=== PATIENT | female | born 1975 | race Caucasian/White ===

== ENCOUNTER 2024-07-24 22:29 | Emergency (ER) | payer BC ==
[2024-07-24] MEDS ORDERED: NA CHLORIDE 0.9% 1,000 ML ONE (23:30)
[2024-07-24] MEDS ORDERED: LORazepam 2 MG/ML VIAL ONE (23:30)
[2024-07-24] MEDS ORDERED: MORPHINE 2 MG/ML SYR ONE (23:30)
[2024-07-24] MEDS ORDERED: KETOROLAC 30 MG/ML INJ ONE (23:30)
[2024-07-24 23:37] LABS: Absolute Lymphocytes (CBC) 1.1 K/uL (0.7-4.9); Absolute Monocytes 0.9 K/uL (0.1-1.3); Absolute Neutrophil 7.1 K/uL (1.8-8.0); Basophils % 0.2 % (0-1.3); Eosinophils % 0.1 % (0-4.4); Hematocrit 41.3 % (36.0-45.0); Lymphocytes % 12.1 % (15.3-44.8); MCH 32.6 pg (27.0-35.0); MCV 95.8 fL (80-100); MPV 7.2 fL (7.6-11.3); Monocytes % 9.9 % (3.3-12.3); Neutrophils % 77.7 % (41.7-73.7); Nucleated Red Blood Cells % 0.1 % (0-0); Platelets 318 thou/uL (152-406); RBC Red Blood Cell Count 4.31 M/uL (3.86-4.86); Red Cell Distribution Width 14.1 % (12.1-15.2)
[2024-07-25 00:04] LABS: Albumin 3.8 g/dL (3.4-5.0); Albumin/Globulin Ratio 0.9 (1.1-1.8); Anion Gap 15.1 mEq/L (5.0-15.0); Bilirubin Direct 0.3 mg/dL (0-0.2); Bilirubin Indirect, Calculated 0.6 mg/dL (0.2-0.8); Bilirubin Total 0.9 mg/dL (0.2-1.0); Globulin 4.2 g/dL (2.3-3.5); Potassium 3.1 mEq/L (3.5-5.1)
[2024-07-25 00:11] LABS: Thyroid Stimulating Hormone 6.07 uIU/mL (0.358-3.740)
[2024-07-25] MEDS ORDERED: THIAMINE 200 MG/2 ML INJ ONE (01:44)
[2024-07-25] MEDS ORDERED: CALCIUM GLUCONATE 1 GM IVPB 2 GM/100 ML BAG IV ONE (01:44)
--- NOTE | 2024-07-25 03:26 | EDPHYS ---
Physician Documentation [facility] [place] Name: Albert Montanez Age: 48 yrs Sex: Female : 1975 Arrival Date: 07/24/2024 Time: 22:29 Bed 18 Private MD: ED Physician Jovi Craig HPI: 07/24 22:45 This 48 yrs old Black Female presents to ER via Unassigned with complaints of Can't sp4 open hands. 07/25 20:37 48-year-old female presents with acute paresthesias and bilateral hand contractures sp4 after developing anxiety after alcohol consumption. Patient states she consumed significant alcohol yesterday because she was feeling unwell and upset about her cat. . Historical: - Allergies: 02:45 No Known Allergies; jb4 - PMHx: 02:45 Hypothyroidism; jb4 - PSHx: 02:45 tubal ligation; jb4 - Family history:: not pertinent. ROS: 20:37 Constitutional: Negative for fever, chills, and weight loss, positive paresthesias, sp4 positive bilateral hand tetany 20:37 All other systems are negative, Exam: 20:37 Constitutional: This is a well developed, well nourished patient who is awake, alert, sp4 very anxious Head/Face: Normocephalic, atraumatic. Eyes: Pupils equal round and reactive to light, extra-ocular motions intact. Lids and lashes normal. Conjunctiva and sclera are not injected. Cornea within normal limits. Periorbital areas with no swelling, redness, or edema. ENT: Nares patent. No nasal discharge, no septal abnormalities noted. Tympanic membranes are normal and external auditory canals are clear. Oropharynx with no redness, swelling, or masses, exudates, or evidence of obstruction, uvula midline. Mucous membranes moist. Neck: Trachea midline, no thyromegaly or masses palpated, and no cervical lymphadenopathy. Supple, full range of motion without nuchal rigidity, or vertebral point tenderness. Chest/axilla: Normal chest wall appearance and motion. Nontender with no deformity. No lesions are appreciated. Cardiovascular: Regular rate and rhythm with a normal S1 and S2. No gallops, murmurs, or rubs. Normal PMI, no JVD. No pulse deficits. Respiratory: Lungs have equal breath sounds bilaterally, clear to auscultation and percussion. No rales, rhonchi or wheezes noted. No increased work of breathing, no retractions or nasal flaring. Abdomen/GI: Soft, with normal bowel sounds. No distension or tympany. No guarding or rebound. No evidence of tenderness throughout. Back: No spinal tenderness. No costovertebral tenderness. Skin: Warm, dry with normal turgor. Normal color with no rashes, no lesions, and no evidence of cellulitis. MS/ Extremity: Pulses equal, no cyanosis. Neurovascular intact. Bilateral wrist and hand contractures consistent with acute tetany secondary to hyperventilation Neuro: Awake and alert, GCS 15, oriented to person, place, time, and situation. Cranial nerves II-XII grossly intact. Motor strength 5/5 in all extremities. Sensory grossly intact. Psych: Awake, alert, with orientation to person, place and time. Moderate to severe anxiety Vital Signs: 00:06 BP 173 / 123; Pulse 85; Resp 16; Pulse Ox 99% on R/A; jb4 02:11 BP 150 / 94; Pulse 87; Resp 15; Pulse Ox 100% on R/A; jb4 NIH Stroke Scale Scores: 20:37 NIHSS Score: 0 sp4 Keller Coma Score: 20:37 Eye Response: spontaneous(4). Motor Response: obeys commands(6). Verbal Response: sp4 oriented(5). Total: 15. MDM: 07/24 22:52 Medical Screening Exam initiated sp4 07/25 20:54 Differential Diagnosis altered mental status, sepsis, flu, Anxiety attack . Data sp4 reviewed: vital signs, nurses notes, lab test result(s), CBC, electrolytes, hepatic panel. Consideration of Admission/Observation Escalation of care including admission/observation considered. 20:55 ED course: Symptoms have completely resolved after medications. Patient stable for sp4 discharge home.. 07/24 22:56 Order name: Basic Metabolic Panel; Complete Time: sp4 07/24 22:56 Order name: CBC with Diff; Complete Time: sp4 07/24 22:56 Order name: LFT's; Complete Time: sp4 07/24 22:57 Order name: TSH; Complete Time: sp4 07/24 22:57 Order name: T4 Free; Complete Time: sp4 07/24 22:56 Order name: Saline Lock; Complete Time: 00:06 sp4 07/24 22:56 Order name: Cardiac monitoring; Complete Time: 23:51 sp4 07/24 22:56 Order name: IV Saline Lock; Complete Time: 23:36 sp4 07/24 22:56 Order name: Labs collected and sent; Complete Time: 23:36 sp4 Administered Medications: 07/24 23:36 Drug: Ativan IVP 2 mg IVP once Route: IVP; Site: right antecubital; [facility] 07/25 00:00 Follow up: Response: No adverse reaction; Marked relief of symptoms [facility] 07/24 23:36 Drug: morphine IVP or IV 2 mg IVP once over 4 mins Route: IVP; Infused Over: 4 mins; [facility] Site: right antecubital; 07/25 00:00 Follow up: Response: No adverse reaction; Marked relief of symptoms [facility] 07/24 23:36 Drug: Ketorolac IVP 15 mg IVP once Route: IVP; Site: right antecubital; [facility] 07/25 00:00 Follow up: Response: No adverse reaction; Marked relief of symptoms [facility] 07/24 23:36 Drug: NS 0.9% IV 1000 ml IV at 1 bolus Per protocol; to be given as a bolus over 60 jb4 minutes Route: IV; Rate: 1 bolus; Site: right antecubital; 07/25 00:36 Follow up: Response: No adverse reaction; IV Status: Completed infusion; IV Intake: jb4 1000ml 02:10 Drug: Calcium Gluconate IVPB 2 grams IVPB once over 60 mins; (mix in NS 100 mL) Route: jb4 IVPB; Infused Over: 60 mins; Site: right antecubital; 03:10 Follow up: Response: No adverse reaction; IV Status: Completed infusion; IV Intake: jb4 100ml 02:10 Drug: Thiamine IV 100 mg IV at bolus once Route: IV; Rate: bolus; Site: right [facility] antecubital; 02:11 Follow up: Response: No adverse reaction; IV Status: Completed infusion jb4 Disposition Summary: 07/25/24 03:25 Discharge Ordered Notes: Location: Home sp4 Problem: new sp4 Symptoms: have improved sp4 Condition: Stable sp4 Diagnosis - acute Panick attack , acute alcoholic hepatitis, acute hyperventilation, acute sp4 hypocalcemia, hypothyroidism Followup: sp4 - With: Private Physician - When: 7 - 10 days - Reason: Recheck today's complaints Discharge Instructions: - Discharge Summary Sheet sp4 - Alcoholic Hepatitis sp4 Forms: - Patient Portal Instructions sp4 NIH Stroke Scale - NIH Stroke Score Date: 07/25/2024 Time: 20:37 Total Score = 0 10. Dysarthria (speech clarity - read or repeat words) - 0(Normal) 11. Extinction and Inattention (visual/tactile/auditory/spatial/personal) - 0(No abnormality) 1a. Level of Consciousness (LOC) - 0(Alert) 1b. Level of Consciousness (LOC) (Month \T\ Age) - 0(Both) 1c. LOC Commands (Open \T\ Closes Eyes/Strawhat Inspector And Packer) - 0(Both) 2. Best Gaze (Lateral Gaze Paresis) - 0(Normal) 3. Visual Field Loss - 0(No visual loss) 4. Facial Palsy - 0(Normal) 5a. Left Arm: Motor (10-second hold) - 0(No drift) 5b. Right Arm: Motor (10-second hold) - 0(No drift) 6a. Left Leg: Motor (5-second hold - always test supine) - 0(No drift) 6b. Right Leg: Motor (5-second hold - always test supine) - 0(No drift) 7. Limb Ataxia (finger/nose \T\ heel/ridley - test with eyes open) - 0(Absent) 8. Sensory Loss (pinprick arms/legs/face) - 0(Normal) 9. Best Language: Aphasia (description/naming/reading) - 0(No aphasia) Initials: sp4 Signatures: Dispatcher [employer] Dwight Holland, NADEEM RN jb4 Jovi Craig MD MD sp4
--- NOTE | 2024-07-25 03:26 | ER ---
Nurse's Notes [facility] [place] Name: Albert Head Age: 48 yrs Sex: Female : 1975 Arrival Date: 07/24/2024 Time: 22:29 Bed 18 Private MD: Diagnosis: acute Panick attack , acute alcoholic hepatitis, acute hyperventilation, acute hypocalcemia, hypothyroidism Presentation: 07/24 23:01 Chief complaint: Patient states: Drank a lot last night, been vomiting, now my hands vc1 won't open. Coronavirus screen: Client denies travel out of the [place] in the last 14 days. At this time, the client does not indicate any symptoms associated with coronavirus-19. Ebola Screen: Patient negative for fever greater than or equal to 101.5 degrees Fahrenheit, and additional compatible Ebola Virus Disease symptoms Patient denies exposure to infectious person. Patient denies travel to an Ebola-affected area in the 21 days before illness onset. No symptoms or risks identified at this time. 23:01 Method Of Arrival: Ambulatory vc1 23:05 Initial Sepsis Screen: Does the patient meet any 2 criteria? No. Patient's initial jb4 sepsis screen is negative. Does the patient have a suspected source of infection? No. Patient's initial sepsis screen is negative. Risk Assessment: Do you want to hurt yourself or someone else? Patient reports no desire to harm self or others. 23:05 Acuity: JOSÉ 3 jb4 23:05 Onset of symptoms was July 25, 2024. Transition of care: patient was not received jb4 from another setting of care. Historical: - Allergies: 07/25 02:45 No Known Allergies; jb4 - PMHx: 02:45 Hypothyroidism; jb4 - PSHx: 02:45 tubal ligation; jb4 - Family history:: not pertinent. Screenin:23 [facility] ED Fall Risk Assessment (Adult) History of falling in the last 3 months, jb4 including since admission No falls in past 3 months (0 pts) Confusion or Disorientation No (0 pts) Intoxicated or Sedated No (0 pts) Impaired Gait No (0 pts) Mobility Assist Device Used No (0 pt) Altered Elimination No (0 pt) Score/Fall Risk Level 0 - 2 = Low Risk Oriented to surroundings, Maintained a safe environment. Abuse screen: Denies threats or abuse. Nutritional screening: No deficits noted. Tuberculosis screening: No symptoms or risk factors identified. Assessment: 07/24 23:00 General: Appears in no apparent distress. comfortable, Behavior is calm, cooperative, jb4 appropriate for age. Pain: Complains of pain in right hand and left hand Pain does not radiate. Pain currently is 10 out of 10 on a pain scale. Neuro: Level of Consciousness is awake, alert, obeys commands, Oriented to person, place, time, situation. Cardiovascular: Patient's skin is warm and dry. Respiratory: Airway is patent Respiratory effort is even, unlabored, Respiratory pattern is regular, symmetrical. Derm: Skin is intact, Skin is pink, warm \T\ dry. Musculoskeletal: Circulation, motion, and sensation intact. Range of motion: intact in all extremities. 07/25 00:06 Reassessment: Patient appears in no apparent distress at this time. Patient and/or jb4 family updated on plan of care and expected duration. Pain level reassessed. Patient is alert, oriented x 3, equal unlabored respirations, skin warm/dry/pink. 01:00 Reassessment: Patient appears in no apparent distress at this time. Patient and/or jb4 family updated on plan of care and expected duration. Pain level reassessed. Patient is alert, oriented x 3, equal unlabored respirations, skin warm/dry/pink. 02:00 Reassessment: Patient appears in no apparent distress at this time. Patient and/or jb4 family updated on plan of care and expected duration. Pain level reassessed. Patient is alert, oriented x 3, equal unlabored respirations, skin warm/dry/pink. Vital Signs: 00:06 BP 173 / 123; Pulse 85; Resp 16; Pulse Ox 99% on R/A; jb4 02:11 BP 150 / 94; Pulse 87; Resp 15; Pulse Ox 100% on R/A; jb4 Maribel Coma Score: 20:37 Eye Response: spontaneous(4). Motor Response: obeys commands(6). Verbal Response: sp4 oriented(5). Total: 15. NIH Stroke Scale Scores: 20:37 NIHSS Score: 0 sp4 ED Course: 07/24 22:31 Patient arrived in ED. mr 22:45 Jovi Craig MD is Attending Physician. sp4 07/25 00:23 Patient has correct armband on for positive identification. Bed in low position. Call jb4 light in reach. Side rails up X 1. Provided Education on: Plan of care. 02:45 Triage completed. jb4 03:35 No provider procedures requiring assistance completed. IV discontinued, intact, jb4 bleeding controlled, No redness/swelling at site. Pressure dressing applied. Administered Medications: 07/24 23:36 Drug: Ativan IVP 2 mg IVP once Route: IVP; Site: right antecubital; jb4 07/25 00:00 Follow up: Response: No adverse reaction; Marked relief of symptoms 4 07/24 23:36 Drug: morphine IVP or IV 2 mg IVP once over 4 mins Route: IVP; Infused Over: 4 mins; 4 Site: right antecubital; 07/25 00:00 Follow up: Response: No adverse reaction; Marked relief of symptoms 4 07/24 23:36 Drug: Ketorolac IVP 15 mg IVP once Route: IVP; Site: right antecubital; jb4 07/25 00:00 Follow up: Response: No adverse reaction; Marked relief of symptoms 4 07/24 23:36 Drug: NS 0.9% IV 1000 ml IV at 1 bolus Per protocol; to be given as a bolus over 60 jb4 minutes Route: IV; Rate: 1 bolus; Site: right antecubital; 07/25 00:36 Follow up: Response: No adverse reaction; IV Status: Completed infusion; IV Intake: jb4 1000ml 02:10 Drug: Calcium Gluconate IVPB 2 grams IVPB once over 60 mins; (mix in NS 100 mL) Route: jb4 IVPB; Infused Over: 60 mins; Site: right antecubital; 03:10 Follow up: Response: No adverse reaction; IV Status: Completed infusion; IV Intake: jb4 100ml 02:10 Drug: Thiamine IV 100 mg IV at bolus once Route: IV; Rate: bolus; Site: right jb4 antecubital; 02:11 Follow up: Response: No adverse reaction; IV Status: Completed infusion jb4 Intake: 00:36 IV: 1000ml; Total: 1000ml. jb4 03:10 IV: 100ml; Total: 1100ml. jb4 Outcome: 03:25 Discharge ordered by . sp4 03:35 Discharged to home ambulatory, jb4 03:35 Condition: stable 03:35 Discharge instructions given to patient, Instructed on discharge instructions, follow up and referral plans. Demonstrated understanding of instructions, follow-up care, 03:37 Patient left the ED. jb4 NIH Stroke Scale - NIH Stroke Score Date: 07/25/2024 Time: 20:37 Total Score = 0 10. Dysarthria (speech clarity - read or repeat words) - 0(Normal) 11. Extinction and Inattention (visual/tactile/auditory/spatial/personal) - 0(No abnormality) 1a. Level of Consciousness (LOC) - 0(Alert) 1b. Level of Consciousness (LOC) (Month \T\ Age) - 0(Both) 1c. LOC Commands (Open \T\ Closes Eyes/Corporate Security Manager) - 0(Both) 2. Best Gaze (Lateral Gaze Paresis) - 0(Normal) 3. Visual Field Loss - 0(No visual loss) 4. Facial Palsy - 0(Normal) 5a. Left Arm: Motor (10-second hold) - 0(No drift) 5b. Right Arm: Motor (10-second hold) - 0(No drift) 6a. Left Leg: Motor (5-second hold - always test supine) - 0(No drift) 6b. Right Leg: Motor (5-second hold - always test supine) - 0(No drift) 7. Limb Ataxia (finger/nose \T\ heel/ridley - test with eyes open) - 0(Absent) 8. Sensory Loss (pinprick arms/legs/face) - 0(Normal) 9. Best Language: Aphasia (description/naming/reading) - 0(No aphasia) Initials: sp4 Signatures: Patrica Ochoa, Reg Reg mr Quinn Dwight, RN RN jb4 Rona Fair, NADEEM RN vc1 Jovi Craig MD MD sp4
[2024-07-25 03:48] VITALS: BP 150/94; O2SAT 100
== END 2024-07-25 03:37 | disposition home or self-care (01) ==
LOC: ER 22:29
DX: F41.0 Panic disorder [episodic paroxysmal anxiety] (principal); K70.10 Alcoholic hepatitis without ascites; R06.4 Hyperventilation; E83.51 Hypocalcemia; E03.9 Hypothyroidism, unspecified
CPT/HCPCS: 96365; 96361; 85025; 80048; 36415; 80076; 84443; 84439; 96375; 99284; J3411; J0612; J2270; J7030